=== PATIENT | female | born 1985 | race Caucasian/White ===

== ENCOUNTER 2018-10-12 11:11 | Day surgery (SDC) | payer BC ==
[~2018-10-12] VITALS: Ht 167.6 cm; Wt 114.0 kg
[2018-10-12 12:28] VITALS: BP 139/81; PULSE 103; TEMP 98
[2018-10-12] MEDS ORDERED: VALIUM 10MG10 MG/TAB PO (12:49)
[2018-10-12] MEDS ORDERED: FLOMAX 0.40.4 MG/CAP PO (12:50)
[2018-10-12] MEDS ORDERED: NAPROSYN500 MG PO (12:50)
[2018-10-12] MEDS ORDERED: ULTRAM 50MG TAB50 MG PO (12:51)
[2018-10-12] MEDS ORDERED: ZOLOFT 100MG100 MG PO (12:52)
[2018-10-12] MEDS ORDERED: PERCOCET 325 MG1 TAB PO (12:52)
[2018-10-12] MEDS ORDERED: ESTRACE2 MG PO (12:54)
[2018-10-12] MEDS ORDERED: PROVERA 10MG10 MG PO (12:56)
[2018-10-12 14:25] VITALS: BP 130/64; PULSE 98
--- NOTE | 2018-10-12 14:25 | NUR ---
Patient returns to room 1 per cart from PACU and is awake and alert. Temp 99 and room air sats 94%. Denies pain or nausea and states that she is needing up to void. Bedpan removed and assisted up to the bathroom with standby assist. Patient voids yellow urine and returns to room.
[2018-10-12 14:40] VITALS: BP 147/80; PULSE 96
--- NOTE | 2018-10-12 14:40 | NUR ---
Eating muffin and drinking water. Continues to deny pain or nausea.
[2018-10-12 14:55] VITALS: BP 131/74; PULSE 98
--- NOTE | 2018-10-12 14:55 | NUR ---
Room air sats 94%. Continues to deny pain or nausea. Does well drinking water.
--- NOTE | 2018-10-12 15:05 | NUR ---
Again assisted up to the bathroom. Voids pink tinged urine. Urine strained and no stones noted. Instructed patient to strain urine and sent home with urine strainer.
--- NOTE | 2018-10-12 15:10 | NUR ---
IV discontinued and and patient is able to dress self.
--- NOTE | 2018-10-12 15:15 | NUR ---
Given dismissal instructions and voices understanding of these. Instructed to keep follow up appointment that was made pre-operatively. Provided office number for questions and concerns. Instructed to continue home medications.
[2018-10-12 15:19] VITALS: TEMP 97.9
--- NOTE | 2018-10-12 15:19 | NUR ---
Patient dismissed to home per private vehicle driven by spouse with instructions in hand. Patient taken to the front door per wheelchair and assisted into vehicle.
== END 2018-10-12 15:19 | disposition home or self-care (01) ==
LOC: SDCO 11:11
DX: N20.0 Calculus of kidney (principal); F41.9 Anxiety disorder, unspecified; Z87.440 Personal history of urinary (tract) infections; I95.9 Hypotension, unspecified; Z90.710 Acquired absence of both cervix and uterus; Z79.899 Other long term (current) drug therapy; Z86.32 Personal history of gestational diabetes
CPT/HCPCS: C1769; J0690; J1100; J1885; J2250; J2405; J2704; J3010; J7120